=== PATIENT | female | born 1985 | race Caucasian/White ===

== ENCOUNTER 2016-07-25 07:06 | Emergency (ER) | payer MEDICAID ==
[~2016-07-25] VITALS: Ht 170.2 cm; Wt 82.0 kg
[2016-07-25 07:08] VITALS: BP 114/71; PULSE 84; RESP 16; TEMP 99.1; O2SAT 96
--- NOTE | 2016-07-25 07:34 | PD ---
HPI Chief Complaint: ENT Complaint Time Seen by Provider: 07:26 Travel History International Travel<30 days: No Contact w/Intl Traveler<30days: No Traveled to known affect area: No History of Present Illness HPI 30-year-old female presents to the emergency Department with right- sided throat pain and fever for the past several days. Patient states she has pain into the right ear and worsening right throat pain with difficulty swallowing secondary to pain. Patient also feels hoarse. Patient denies headache, nausea, vomiting, but has had increased reflux in the past several weeks. She denies cough or shortness of breath. She denies diarrhea. Patient has a history of MRSA but no known drug allergies. PFSH Past Medical History Asthma: Yes Diminished Hearing: No Respiratory: Yes (ASTHMA) Immunizations Current: Yes ?: Not LMP: 07/17/16 : 4 Para: 2 Miscarriage: 2 Social History Alcohol Use: Yes (Occ.) Tobacco Use: Yes (1/2PPD) Substance Use: No Allergies-Medications (Allergen,Severity, Reaction): Coded Allergies: *MDRO Multi-Drug Resistant Organism (Verified Adverse Reaction, Unknown, ) MRSA leg wound 03/2015 Reported Meds & Prescriptions Reported Meds & Active Scripts Active Omeprazole 40 Mg Cap 40 Mg PO DAILY Magic Mouthwash Adult Liq (Multi-Ingredient Mouthwash/Gargle) 120 Ml Susp 5 Ml SWISH-SWAL ACHS Each 5 mL contains: Nystatin 200,000 units, Diphenhydramine 4.25 mg, Viscous Lidocaine 10 mg, Chin syrup 0.8 mL Augmentin (Amoxicillin-Clavulanate) 875-125 mg Tab 875 Mg PO BID not for use in CrCl <30 ml/min. Review of Systems Except as stated in HPI: all other systems reviewed are Neg General / Constitutional: Positive: Fever, Chills Eyes: No: Visual changes HENT: Positive: Sore Throat, Rhinitis, Rhinorrhea, Congestion, Earache, No: Headaches, Vertigo, Lightheadedness, Nosebleed, Neck Stiffness, Neck Pain, Gingival Bleeding, Dental Difficulties, Ear Discharge Cardiovascular: No: Chest Pain or Discomfort Respiratory: No: Cough, Shortness of Breath, Wheezing Gastrointestinal: Positive: Other (increased heartburn in the past several weeks.), No: Nausea, Vomiting, Diarrhea, Abdominal Pain Genitourinary: No: Dysuria Musculoskeletal: No: Pain Skin: No Rash Neurologic: No: Weakness Psychiatric: No: Depression Endocrine: No: Polydipsia Hematologic/Lymphatic: No: Easy Bruising Physical Exam Narrative GENERAL: Patient appears in no acute distress although mildly ill. SKIN: Warm and dry. Normal color. Normal turgor. HEAD: Atraumatic. Normocephalic. EYES: Pupils equal and round. No scleral icterus. No injection or drainage. ENT: No nasal bleeding or discharge. Mucous membranes pink and moist. Patient has inflamed swollen tender right sided tonsillitis with mild to moderate injection as well on the left without swelling. There is mild greenish exudate noted. Uvula is midline. Pharynx is otherwise clear. Airway is patent. TMs are somewhat dull bilaterally with no injection. No sinus tenderness. NECK: Trachea midline. No JVD. Supple. Patient has tender right anterior cervical lymphadenopathy. CARDIOVASCULAR: Regular rate and rhythm. RESPIRATORY: No accessory muscle use. Clear to auscultation. Breath sounds equal bilaterally. GASTROINTESTINAL: Abdomen soft, non-tender, nondistended. Hepatic and splenic margins not palpable. MUSCULOSKELETAL: Extremities without clubbing, cyanosis, or edema. No obvious deformities. NEUROLOGICAL: Awake and alert. No obvious cranial nerve deficits. Motor grossly within normal limits. Five out of 5 muscle strength in the arms and legs. Normal speech. PSYCHIATRIC: Appropriate mood and affect; insight and judgment normal. Data Data Last Documented VS Vital Signs Date Time Temp Pulse Resp B/P Pulse Ox O2 Delivery O2 Flow Rate FiO2 07/25/16 07:08 99.1 84 16 114/71 96 MDM Medical Decision Making Medical Screen Exam Complete: Yes Emergency Medical Condition: Yes Differential Diagnosis Viral pharyngitis. Tonsillitis. Strep throat. Peritonsillar abscess. Narrative Course Patient is stable at time of medical exam. Patient will be treated with Augmentin 875 twice a day 10 days. Patient is given Magic mouthwash 5-10 mL's every 2 hours when necessary throat pain 120 mL's. 2 refills. Patient is given omeprazole 40 mg daily #30 with 2 refills. Is to use ice chips and salt water gargles frequently. Patient is Tylenol and ibuprofen as needed. Patient follow with primary care physician or return to emergency Department with worsening symptoms as discussed. Diagnosis Primary Impression: Peritonsillar abscess Patient Instructions: General Instructions, Peritonsillar Abscess (ED) Departure Forms: Work Release Enter return to work date: Jul 27, 2016 Additional Instructions: Patient will be treated with Augmentin 875 twice a day 10 days. Patient is given Magic mouthwash 5-10 mL's every 2 hours when necessary throat pain 120 mL's. 2 refills. Patient is given omeprazole 40 mg daily #30 with 2 refills. Is to use ice chips and salt water gargles frequently. Patient is Tylenol and ibuprofen as needed. Patient follow with primary care physician or return to emergency Department with worsening symptoms as discussed. Med/Other Pt SpecificInfo: Prescription(s) given Scripts Omeprazole 40 Mg Cap40 Mg PO DAILY #30 CAP Ref 2 Prov:Rick Lanza MD 07/25/16 Pyumhpjo-Skheihhhghvujcp-Hvznaraxo Liq (Magic Mouthwash Adult Liq)120 Ml Susp5 Ml SWISH-SWAL ACHS #120 ML Ref 2 Each 5 mL contains: Nystatin 200,000 units, Diphenhydramine 4.25 mg, Viscous Lidocaine 10 mg, Chin syrup 0.8 mL Prov:Rick Lanza MD 07/25/16 Amoxicillin-Clavulanate (Augmentin)875-125 mg [id number] Mg PO BID #20 TAB not for use in CrCl <30 ml/min. Prov:Rick Lanza MD 07/25/16 Disposition: 01 DISCHARGE HOME Condition: Stable Lloyd Calhoun Jul 25, 2016 07:34
[2016-07-25] MEDS ORDERED: OMEP40CA2 PO (07:35)
[2016-07-25] MEDS ORDERED: MAGICADU2 SWISH-SWAL (07:35)
[2016-07-25] MEDS ORDERED: AUGM875T PO (07:35)
== END 2016-07-25 07:44 | disposition home or self-care (01) ==
LOC: NEPB 07:06
DX: J36 Peritonsillar abscess (principal); F17.210 Nicotine dependence, cigarettes, uncomplicated
CPT/HCPCS: 99283

== ENCOUNTER 2016-12-02 18:00 | Emergency (ER) | payer MEDICAID ==
[~2016-12-02] VITALS: Ht 170.2 cm; Wt 75.0 kg
[~2016-12-02 18:00] MED LIST: AUGM875T PO; MAGICADU2 SWISH-SWAL; OMEP40CA2 PO
[2016-12-02 18:10] VITALS: BP 116/82; PULSE 81; RESP 16; TEMP 98.9; O2SAT 98
[2016-12-02] MEDS: KETOROLAC TROMETHAMINE 60 MG/2 ML (IM) VIAL IM ONE ×2 (19:30→19:58)
--- NOTE | 2016-12-02 19:36 | PD ---
HPI Chief Complaint: Injury Time Seen by Provider: 19:23 Travel History International Travel<30 days: No Contact w/Intl Traveler<30days: No Traveled to known affect area: No History of Present Illness HPI Patient is a 31-year-old female presenting to emergency for evaluation of right hand pain. Patient states she fell on the lateral aspect of her right hand last night. She reports pain a 7 out of 10 and bruising. Patient feels as if she fractured her hand. She denies any numbness or weakness but states it's painful when she tries to dentist attendant. She denies any other injury or trauma. She denies a significant past medical history. Patient took ibuprofen approximately 4 hours prior to arrival with no significant relief of symptoms. PFSH Past Medical History Asthma: Yes Diminished Hearing: No Immunizations Current: Yes ?: Not : 4 Para: 2 Miscarriage: 2 Social History Alcohol Use: Yes (Occ.) Tobacco Use: Yes (1/2PPD) Substance Use: No Allergies-Medications (Allergen,Severity, Reaction): Coded Allergies: *MDRO Multi-Drug Resistant Organism (Verified Adverse Reaction, Unknown, ) MRSA leg wound 03/2015 Reported Meds & Prescriptions Reported Meds & Active Scripts Active No Active Prescriptions or Reported Medications Review of Systems Except as stated in HPI: all other systems reviewed are Neg Musculoskeletal: Positive: Myalgias, Arthralgias, Edema, Pain Skin: Positive Change in Pigmentation Physical Exam Narrative GENERAL: Well-nourished, well-developed patient. SKIN: Focused skin assessment warm/dry. HEAD: Normocephalic. EYES: No scleral icterus. No injection or drainage. NECK: Supple, trachea midline. No JVD or lymphadenopathy. CARDIOVASCULAR: Regular rate and rhythm without murmurs, gallops, or rubs. RESPIRATORY: Breath sounds equal bilaterally. No accessory muscle use. GASTROINTESTINAL: Abdomen soft, non-tender, nondistended. MUSCULOSKELETAL: No cyanosis, mild edema and ecchymosis noted over the lateral aspect of the right hand as well as the fourth and fifth metacarpals. Positive radial pulse, brisk less than 2 second capillary refill. Decreased range of motion with flexion and extension of right fourth and fifth fingers. BACK: Nontender without obvious deformity. No CVA tenderness. Data Data Last Documented VS Vital Signs Date Time Temp Pulse Resp B/P Pulse Ox O2 Delivery O2 Flow Rate FiO2 12/02/16 18:10 98.9 81 16 116/82 98 Orders Hand, Complete ([id number]) (12/02/16 ) Ketorolac Inj (Toradol Inj) (12/02/16 19:30) Ice / Cold Pack PRN (12/02/16 19:30) Wrist, Complete ([id number]) (12/02/16 ) [facility] Medical Decision Making Medical Screen Exam Complete: Yes Emergency Medical Condition: Yes Interpretation(s) Vital Signs Date Time Temp Pulse Resp B/P Pulse Ox O2 Delivery O2 Flow Rate FiO2 12/02/16 18:10 98.9 81 16 116/82 98 Differential Diagnosis Contusion versus fracture versus sprain versus strain versus other Narrative Course Patient's 31-year-old female presenting with 1 day of right hand pain secondary to a mechanical fall. She is neurovascularly intact, imaging ordered and pending. Patient was given ice pack for comfort and Toradol as ordered for pain. Imaging of the right hand and wrist shows no acute fracture or abnormality. Patient is encouraged to rest, ice, elevate extremity. She is encouraged to continue range of motion exercises. She is encouraged to follow-up with primary care provider return to emergency department for any new or worsening symptoms. Patient verbalized understanding of these instructions. Patient stable for discharge. Diagnosis Primary Impression: Contusion, hand Qualified Code: S60.221A - Contusion of right hand, initial encounter Additional Impression: Sprain, hand Qualified Code: S63.91XA - Sprain, hand, right, initial encounter Referrals: [facility] Primary Care Physician Patient Instructions: Contusion in Adults (DC), General Instructions, Hand Sprain (ED) Additional Instructions: Follow-up with her primary doctor or at the [facility] Take medications as directed, continue range of motion exercises, rest, ice, elevate extremity Return to emergency department for any new or worsening symptoms Med/Other Pt SpecificInfo: Prescription(s) given Scripts Ibuprofen 800 Mg [id number] Mg PO Q6HR PRN (PAIN) #40 TAB Ref 0 Prov:Jessica Tomas 12/02/16 Disposition: 01 DISCHARGE HOME Condition: Stable Jessica Tomas Dec 02, 2016 19:36
--- NOTE | 2016-12-02 20:06 | RADRPT ---
EXAM DATE/TIME: 12/02/2016 19:41 [facility] COMPARISON: HAND RIGHT COMPLETE ([id number]), January 18, 2016, 20:35. INDICATIONS : Right hand pain from fall yesterday. MEDICAL HISTORY : None. SURGICAL HISTORY : None. ENCOUNTER: Initial ACUITY: 1 day PAIN SCORE: 9/10 LOCATION: Right medial hand FINDINGS: Three views the right hand demonstrate no fracture or dislocation. Mineralization is within normal li mits and there is no significant arthropathy. No soft tissue abnormality or radiopaque foreign body i s identified. CONCLUSION: No acute cardiopulmonary abnormality is identified. Young Leyva MD on December 02, 2016 at 20:01 Board Certified Radiologist. This report was verified electronically.
--- NOTE | 2016-12-02 20:07 | RADRPT ---
EXAM DATE/TIME: 12/02/2016 19:45 [facility] COMPARISON: No previous studies available for comparison. INDICATIONS : Right wrist pain from fall yesterday. MEDICAL HISTORY : None. SURGICAL HISTORY : None. ENCOUNTER: Initial ACUITY: 1 day PAIN SCORE: 10 LOCATION: Right wrist FINDINGS: Three views of the right wrist demonstrate no fracture or dislocation. Mineralization is within wandy l limits. There is no significant arthropathy. No soft tissue abnormality or radiopaque foreign body is identified. CONCLUSION: No acute abnormality. Young Leyva MD on December 02, 2016 at 20:04 Board Certified Radiologist. This report was verified electronically.
[2016-12-02] MEDS ORDERED: IBUP800T23 PO (20:14)
== END 2016-12-02 20:32 | disposition home or self-care (01) ==
LOC: NEPK 18:00
DX: S60.221A Contusion of right hand, initial encounter (principal); F17.210 Nicotine dependence, cigarettes, uncomplicated; W18.30XA Fall on same level, unspecified, initial encounter; Y93.9 Activity, unspecified; Y92.9 Unspecified place or not applicable; Y99.9 Unspecified external cause status
CPT/HCPCS: 73110; 73130; 99283; J1885

== ENCOUNTER 2017-07-03 11:45 | Emergency (ER) | payer MEDICAID ==
[~2017-07-03] VITALS: Ht 170.2 cm; Wt 77.0 kg
[~2017-07-03 11:45] MED LIST changes: -AUGM875T PO; +IBUP1TAB7 PO; -MAGICADU2 SWISH-SWAL; -OMEP40CA2 PO
[2017-07-03 11:47] VITALS: BP 143/86; PULSE 81; RESP 18; TEMP 98; O2SAT 100
[2017-07-03 12:22] LABS: AUTOMATED NEUTROPHIL # 4.1 TH/MM3 (1.8-7.7); BASOPHIL % 0.5 % (0.0-2.0); EOSINOPHIL # 0.1 TH/MM3 (0-0.4); EOSINOPHIL % 1.7 % (0.0-4.0); HEMATOCRIT 42.8 % (35.0-46.0); HEMOGLOBIN 14.4 GM/DL (11.6-15.3); LYMPHOCYTE # 2.4 TH/MM3 (1.0-4.8); MEAN CELL VOLUME 96.4 FL (80.0-100.0); MEAN CORPUSCULAR HEMOGLOBIN 32.5 PG (27.0-34.0); MEAN CORPUSCULAR HGB CONC 33.7 % (32.0-36.0); MEAN PLATELET VOLUME 9.8 FL (7.0-11.0); MONOCYTE # 0.6 TH/MM3 (0-0.9); NEUT % 56.8 % (16.0-70.0); PLATELET COUNT 173 TH/MM3 (150-450); RED BLOOD COUNT 4.44 MIL/MM3 (4.00-5.30); RED CELL DISTRIBUTION WIDTH 13.3 % (11.6-17.2); WHITE BLOOD COUNT 7.3 TH/MM3 (4.0-11.0)
[2017-07-03 12:31] LABS: BACTERIA, URINE RARE /hpf; BILIRUBIN, URINE NEG (NEG); BLOOD, URINE NEG (NEG); GLUCOSE,URINE NEG (NEG); KETONE, URINE NEG (NEG); MUCUS URINE FEW /lpf (OCC); NITRITE,URINE NEG (NEG); PH, URINE 5.5 (5.0-8.5); SQUAMOUS EPITHELIAL CELL URINE 24 /hpf (0-5); URINE COLOR YELLOW (YELLW/STRAW); URINE LEUKOCYTE ESTERASE LARGE (NEG)
--- NOTE | 2017-07-03 12:47 | PD ---
HPI Chief Complaint: Offset Plate Maker Problem/Complaint Time Seen by Provider: 12:35 Travel History International Travel<30 days: No Contact w/Intl Traveler<30days: No Traveled to known affect area: No History of Present Illness HPI 31-year-old female presents the emergency department with 2 faintly positive urine test. She states she 6 days late for her period. Patient states lower abdominal discomfort and cramping. Patient denies fever, chills, or flank pain. Patient very concerned about possible . Pain is currently 6 out of 10. She denies urinary dysuria or vaginal discharge. She denies vaginal bleeding. Labs ordered in triage include CBC, CMP, type and screen, serum hCG, and urinalysis. Patient's history of MRSA has no known drug allergies. PFSH Past Medical History Medical History: Denies Significant Hx Asthma: Yes Diminished Hearing: No Respiratory: Yes (ASTHMA) Immunizations Current: Yes Tetanus Vaccination: < 5 Years Influenza Vaccination: No ?: Unknown LMP: 06/02/2017 : 4 Para: 2 Miscarriage: 2 Past Surgical History Surgical History: No Previous Surgery Social History Alcohol Use: Yes (Occ.) Tobacco Use: Yes (1/2PPD) Substance Use: No Allergies-Medications (Allergen,Severity, Reaction): Coded Allergies: *MDRO Multi-Drug Resistant Organism (Verified Adverse Reaction, Unknown, ) MRSA leg wound 03/2015 Reported Meds & Prescriptions Reported Meds & Active Scripts Active Ibuprofen 800 Mg Tab 800 Mg PO Q6HR PRN Review of Systems Except as stated in HPI: all other systems reviewed are Neg General / Constitutional: No: Fever, Chills Eyes: No: Visual changes HENT: No: Headaches Cardiovascular: No: Chest Pain or Discomfort Respiratory: No: Shortness of Breath Gastrointestinal: No: Abdominal Pain Genitourinary: Positive: Pelvic Pain, No: Urgency, Frequency, Dysuria, Hesitancy, Dribbling, Incontinence, Flank Pain, Discharge, Vaginal Bleeding Musculoskeletal: No: Pain Skin: No Rash Neurologic: No: Weakness Psychiatric: No: Depression Endocrine: No: Polydipsia Hematologic/Lymphatic: No: Easy Bruising Physical Exam Narrative GENERAL: Patient appears very anxious but otherwise in no acute distress. SKIN: Warm and dry. Normal color. Normal turgor. No rash. HEAD: Atraumatic. Normocephalic. EYES: Pupils equal and round. No scleral icterus. No injection or drainage. ENT: No nasal bleeding or discharge. Mucous membranes pink and moist. NECK: Trachea midline. Supple and nontender CARDIOVASCULAR: Regular rate and rhythm. RESPIRATORY: No accessory muscle use. Clear to auscultation. Breath sounds equal bilaterally. GASTROINTESTINAL: Abdomen soft, moderate diffuse suprapubic tenderness, nondistended. No point tenderness or rebound. No CVA tenderness. Hepatic and splenic margins not palpable. MUSCULOSKELETAL: Extremities without clubbing, cyanosis, or edema. No obvious deformities. NEUROLOGICAL: Awake and alert. No obvious cranial nerve deficits. Motor grossly within normal limits. Five out of 5 muscle strength in the arms and legs. Normal speech. PSYCHIATRIC: Appropriate mood and affect; insight and judgment normal. Data Data Last Documented VS Vital Signs Date Time Temp Pulse Resp B/P (MAP) Pulse Ox O2 Delivery O2 Flow Rate FiO2 07/03/17 11:47 98.0 81 18 143/86 (105) 100 Room Air Orders Orders Beta Hcg (Quant/Titer) (07/03/17 11:50) Complete Blood Count With Diff (07/03/17 11:50) Basic Metabolic Panel (Bmp) (07/03/17 11:50) Complete Rh (07/03/17 11:50) Urinalysis - C+S If Indicated (07/03/17 11:50) Ed Urine Pregnancytest Poc (07/03/17 11:50) Urine Culture (07/03/17 11:55) Ceftriaxone Inj (Rocephin Inj) (07/03/17 12:45) Us Pelvis (Ques Pr/Ect)W Trans (07/03/17 13:14) Labs Laboratory Tests Test 07/03/17 11:55 07/03/17 12:05 Urine Color YELLOW Urine Turbidity HAZY Urine pH 5.5 Urine Specific [place] 1.022 Urine Protein TRACE mg/dL Urine Glucose (UA) NEG mg/dL Urine Ketones NEG mg/dL Urine Occult Blood NEG Urine Nitrite NEG Urine Bilirubin NEG Urine Urobilinogen LESS THAN 2.0 MG/DL Urine Leukocyte Esterase LARGE Urine RBC 6 /hpf Urine WBC 14 /hpf Urine Squamous Epithelial Cells 24 /hpf Urine Bacteria RARE /hpf Urine Mucus FEW /lpf Microscopic Urinalysis Comment CULTURE INDICATED White Blood Count 7.3 TH/MM3 Red Blood Count 4.44 MIL/MM3 Hemoglobin 14.4 GM/DL Hematocrit 42.8 % Mean Corpuscular Volume 96.4 FL Mean Corpuscular Hemoglobin 32.5 PG Mean Corpuscular Hemoglobin Concent 33.7 % Red Cell Distribution Width 13.3 % Platelet Count 173 TH/MM3 Mean Platelet Volume 9.8 FL Neutrophils (%) (Auto) 56.8 % Lymphocytes (%) (Auto) 33.0 % Monocytes (%) (Auto) 8.0 % Eosinophils (%) (Auto) 1.7 % Basophils (%) (Auto) 0.5 % Neutrophils # (Auto) 4.1 TH/MM3 Lymphocytes # (Auto) 2.4 TH/MM3 Monocytes # (Auto) 0.6 TH/MM3 Eosinophils # (Auto) 0.1 TH/MM3 Basophils # (Auto) 0.0 TH/MM3 CBC Comment DIFF FINAL Differential Comment Blood Urea Nitrogen 10 MG/DL Creatinine 0.81 MG/DL Random Glucose 100 MG/DL Calcium Level 8.6 MG/DL Sodium Level 139 MEQ/L Potassium Level 3.4 MEQ/L Chloride Level 106 MEQ/L Carbon Dioxide Level 24.6 MEQ/L Anion Gap 8 MEQ/L Estimat Glomerular Filtration Rate 82 ML/MIN Human Chorionic Gonadotropin, Quant 34 MIU/ML MDM Medical Decision Making Medical Screen Exam Complete: Yes Emergency Medical Condition: Yes Differential Diagnosis Urinary tract infection. Early . Ectopic. Molar . Narrative Course Patient is medically stable at time of exam. Labs show normal CBC, chemistries unremarkable except slightly low potassium of 3.4. Type and screen shows her to be A pos. Serum hCG is slightly positive at 34. Urinalysis very suggestive of urinary tract infection with large leukocyte esterase, with 6 RBCs per high-power field, 14 wbc's per high-power field, and a few bacteria. Urine culture planted. Patient is given 1000 mg Rocephin IM. Patient discussed with Dr. Sanchez who recommends pelvic ultrasound. Ultrasound shows: 1. of unknown location. There is thickening of the endometrium but no gestational sac is identified. Suggest followup imaging and followup beta-hCG as clinically indicated. 2. Ovaries demonstrate no concerning abnormality. 3. Possible 12 mm a intramural leiomyoma in the left mid uterus. Patient will be sent home on Keflex 500 mg 3 times a day 7 days. She is to have repeat hCG in 2 days. Recommend follow-up with yarn dumper as discussed. Patient can return to emergency Department with worsening pain as needed. Diagnosis Primary Impression: UTI (urinary tract infection) Qualified Codes: N30.00 - Acute cystitis without hematuria Additional Impression: Elevated serum hCG Referrals: Pilot Control Operator Helper call for appointment Patient Instructions: Abdominal Pain in (ED), Dysuria (ED), General Instructions Additional Instructions: Labs show normal CBC, chemistries unremarkable except slightly low potassium of 3.4. Type and screen shows her to be A pos. Serum hCG is slightly positive at 34. Urinalysis very suggestive of urinary tract infection with large leukocyte esterase, with 6 RBCs per high-power field, 14 wbc's per high-power field, and a few bacteria. Urine culture planted. Patient is given 1000 mg Rocephin IM. Patient discussed with Dr. Sanchez who recommends pelvic ultrasound. Ultrasound shows: 1. of unknown location. There is thickening of the endometrium but no gestational sac is identified. Suggest followup imaging and followup beta-hCG as clinically indicated. 2. Ovaries demonstrate no concerning abnormality. 3. Possible 12 mm a intramural leiomyoma in the left mid uterus. Patient will be sent home on Keflex 500 mg 3 times a day 7 days. She is to have repeat hCG in 2 days. Recommend follow-up with yarn dumper as discussed. Patient can return to emergency Department with worsening pain as needed. Med/Other Pt SpecificInfo: Prescription(s) given Disposition: 01 DISCHARGE HOME Condition: Stable Lloyd Calhoun Jul 03, 2017 12:47
[2017-07-03 12:48] LABS: BICARBONATE 24.6 MEQ/L (21.0-32.0); CALCIUM 8.6 MG/DL (8.5-10.1); CREATININE 0.81 MG/DL (0.50-1.00)
--- NOTE | 2017-07-03 14:36 | RADRPT ---
EXAM DATE/TIME: 07/03/2017 13:54 [facility] COMPARISON: No previous studies available for comparison. INDICATIONS : Pelvic pains. LAB(S): Beta-hC MEDICAL HISTORY : . Asthma. SURGICAL HISTORY : None. ENCOUNTER: Initial ACUITY: 4-6 days PAIN SCORE: 4/10 LOCATION: Bilateral pelvis MEASUREMENTS: UTERUS: 10.3 x 5.6 x 5.5 cm ENDOMETRIAL STRIPE: >20 mm RIGHT OVARY: 3.0 x 1.8 x 1.2 cm LEFT OVARY: 3.6 x 3.1 x 2.7 cm FREE FLUID: No CROWN RUMP LENGTH: Not visualized FINDINGS: UTERUS: There is a small hypoechoic area in the left mid uterine body measuring 12 mm. This may represent a l eiomyoma. Endometrium is homogeneously thickened. No gestational sac is visualized. RIGHT OVARY: Ovary contains no mass or significant cystic lesion. Possible corpus luteal cyst in the right ovary. LEFT OVARY: Ovary contains no mass or significant cystic lesion. MISCELLANEOUS: No free fluid. CONCLUSION: 1. of unknown location. There is thickening of the endometrium but no gestational sac is id entified. Suggest followup imaging and followup beta-hCG as clinically indicated. 2. Ovaries demonstrate no concerning abnormality. 3. Possible 12 mm a intramural leiomyoma in the left mid uterus. Young Leyva MD on July 03, 2017 at 14:31 Board Certified Radiologist. This report was verified electronically.
[2017-07-03] MEDS ORDERED: CEPH-460 PO (14:53)
[2017-07-03] MEDS ORDERED: CIPR-9 PO (15:23)
[2017-07-03] MEDS ORDERED: TRAM50TA PO (15:23)
[2017-07-03] MEDS ORDERED: METR1TAB76 PO (15:23)
[2017-07-03] MEDS ORDERED: POTA1TAB4 PO (15:23)
[2017-07-11] MEDS ORDERED: PREN1CAP PO (11:04)
[2017-07-11] MEDS ORDERED: TERC.4%V VAGINAL (11:05)
== END 2017-07-03 15:30 | disposition home or self-care (01) ==
LOC: NEPD 11:45
DX: N39.0 Urinary tract infection, site not specified (principal); R93.8 Abnormal findings on diagnostic imaging of other specified body structures; B96.89 Other specified bacterial agents as the cause of diseases classified elsewhere; J45.909 Unspecified asthma, uncomplicated; F17.210 Nicotine dependence, cigarettes, uncomplicated
CPT/HCPCS: 76700; 76817; 80048; 81001; 84702; 84703; 85025; 86901; 87086; 96372; 99285; J0696

== ENCOUNTER 2017-07-16 22:42 | Emergency (ER) | payer OTHER, MEDICAID ==
[~2017-07-16] VITALS: Ht 170.2 cm; Wt 82.0 kg
[~2017-07-16 22:42] MED LIST changes: +PREN1CAP PO; +TERC.4%V VAGINAL
[2017-07-16 22:45] VITALS: BP 112/74; PULSE 86; RESP 16; TEMP 98.7; O2SAT 99
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
[2017-07-16] MEDS ORDERED: ACETAMINOPHEN 325 MG TAB PO ONE (23:15)
[2017-07-16 23:35] LABS: BACTERIA, URINE RARE /hpf; BILIRUBIN, URINE NEG (NEG); BLOOD, URINE NEG (NEG); GLUCOSE,URINE NEG (NEG); KETONE, URINE NEG (NEG); MUCUS URINE FEW /lpf (OCC); NITRITE,URINE NEG (NEG); PH, URINE 5.5 (5.0-8.5); SQUAMOUS EPITHELIAL CELL URINE 6 /hpf (0-5); URINE COLOR YELLOW (YELLW/STRAW); URINE LEUKOCYTE ESTERASE SMALL (NEG)
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
== END 2017-07-17 00:15 | disposition home or self-care (01) ==
LOC: NEPD 22:42
DX: O9A.211 Injury, poisoning and certain other consequences of external causes complicating pregnancy, first trimester (principal); S39.012A Strain of muscle, fascia and tendon of lower back, initial encounter; V89.2XXA Person injured in unspecified motor-vehicle accident, traffic, initial encounter; O99.511 Diseases of the respiratory system complicating pregnancy, first trimester; J45.909 Unspecified asthma, uncomplicated; O99.331 Smoking (tobacco) complicating pregnancy, first trimester; F17.200 Nicotine dependence, unspecified, uncomplicated; Z3A.01 Less than 8 weeks gestation of pregnancy
CPT/HCPCS: 81001; 99283

== ENCOUNTER 2017-09-22 17:37 | Emergency (ER) | payer MEDICAID ==
[2017-09-22 18:18] LABS: AMORPHOUS SEDIMENT, URINE RARE; BILIRUBIN, URINE NEG (NEG); BLOOD, URINE NEG (NEG); GLUCOSE,URINE NEG (NEG); KETONE, URINE NEG (NEG); MUCUS URINE FEW /lpf (OCC); NITRITE,URINE NEG (NEG); SQUAMOUS EPITHELIAL CELL URINE 5 /hpf (0-5); URINE COLOR LIGHT-YELLOW (YELLW/STRAW); URINE LEUKOCYTE ESTERASE TRACE (NEG)
--- NOTE | 2017-09-22 18:25 | PD ---
HPI Chief Complaint Pelvic pressure, flank pain Date Seen: Sep 22, 2017 Time Seen: 18:05 Travel History International Travel<30 Days: No Contact w/Intl Traveler<30Days: No History of Present Illness HPI 31 year old at 16 weeks gestation, patient at [facility], presents for pelvic pressure and flank pain that started early this morning. The pelvic pressure is constant in nature, rated 6/10. The pain radiates down into the vagina and also to the flanks bilaterally. She has not noticed dysuria or more frequent urination than usual. She has also not noticed any blood in the urine. She describes the pain as "swirly and tingling". She does note that 2 weeks ago she was diagnosed with asymptomatic UTI and treated with an antibiotic. She does not remember which antibiotic. She has not noticed any vaginal bleeding or discharge or leakage of fluid. She has no headaches, blurry vision, chest pain, shortness of breath, abdominal pain, nausea, vomiting, diarrhea, edema. History Past Medical History Narrative Medical Asthma, well controlled, has albuterol inhaler GERD, treated with ranitidine Smoker Obstetric History Obstetric History at 16 weeks Goes to [facility] No complications in reported Getting routine care and taking vitamins History of two vaginal deliveries and one first trimester miscarriage Past Surgical History Narrative Surgical None Family History Narrative Family History None reported Social History Narrative Social History Smokes half to one pack per day No alcohol or drug use Allergies-Medications (Allergen,Severity, Reaction): Coded Allergies: No Known Allergies (Unverified , 07/16/17) Home Meds Active Scripts Vit W/ Fe Polysacch C (Vitafol Ultra 29-0.6-0.4-200 mg) 29 Mg Iron-1 Mg -200 Mg Cap, 1 TAB PO DAILY, #30 BOTTLE 11 Refills Prov:Ibis Finnegan 07/11/17 Discontinued Scripts Terconazole Vaginal Cream (Terazol 7 Vaginal Cream) 0.4 % Cream, 1 APPL VAGINAL HS for Fungal Infection, #45 GM 0 Refills 1 applicatorful intravaginally x 7 nights Prov:Ibis Finnegan 07/11/17 Ibuprofen (Ibuprofen) 800 Mg Tab, 800 MG PO Q6HR Y for PAIN, #40 TAB 0 Refills Prov:Jessica TomasP 12/02/16 Narrative Medication Albuterol as needed for asthma Ranitidine as needed for GERD vitamins Review of Systems Except as stated in HPI: all other systems reviewed are Neg Physical Exam Narrative GENERAL: Well-nourished, well-developed patient. SKIN: Warm and dry. HEAD: Normocephalic and atraumatic. EYES: No scleral icterus. No injection or drainage. ENT: No nasal drainage noted. Mucous membranes pink. Airway patent. NECK: Supple, trachea midline. No JVD. CARDIOVASCULAR: Regular rate and rhythm without murmurs, gallops, or rubs. RESPIRATORY: Breath sounds equal bilaterally. No accessory muscle use. ABDOMEN/GI: Abdomen soft, non-tender, bowel sounds present, no rebound, no guarding Gravid to 16 weeks size GENITOURINARY: External Genitalia: intact and normal in appearance Dilatation: closed, thick Doppler: FHT 140's EXTREMITIES: No cyanosis or edema. BACK: Nontender without obvious deformity. No CVA tenderness. NEUROLOGICAL: Awake and alert. Motor and sensory grossly within normal limits. Data Data Vital Signs Reviewed: Yes Orders Orders Urinalysis - C+S If Indicated (09/22/17 18:04) [facility] Medical Record Reviewed: Yes Interpretation(s) 31 year old at 16 weeks gestation presenting with pelvic pressure and flank pain. Likely round ligament pain versus Suraj-Ahn versus bladder spasms. - UA showing trace leukocyte esterase, otherwise normal. No culture indicated per lab. - Cervical exam showing closed and thick cervix - Recommend staying well hydrated Plan 31 year old at 16 weeks gestation with pelvic pressure, likely round ligament pain versus Colbert Ahn contractions. - Continue anticipatory guidance and care. If pain worsens, fevers develop, leakage of fluid occurs, vaginal bleeding occurs. - Continue routine care at [facility]. - Continue vitamins. - Would benefit from smoking cessation counseling. Diagnosis Diagnosis: Primary Impression: Round ligament pain Disposition: 01 DISCHARGE HOME Condition: Good Jamil Rolle MD R3 Sep 22, 2017 18:25
== END 2017-09-22 18:38 | disposition home or self-care (01) ==
LOC: HOBED 17:37
DX: O26.892 Other specified pregnancy related conditions, second trimester (principal); R10.2 Pelvic and perineal pain; Z3A.16 16 weeks gestation of pregnancy
CPT/HCPCS: 81001; 99283

== ENCOUNTER 2018-03-02 07:12 | Inpatient (IN) ==
[2018-03-02] MEDS ORDERED: Sod Chloride 0.9% Inj 1,000 ML IV.CONT PRN (07:29)
[2018-03-02] MEDS ORDERED: Oxytocin 30 Units/500ml Premix 30 UNITS/500 ML BAG IV.SIG ONE (07:29)
[2018-03-02] MEDS ORDERED: Sodium Chlor 0.9% Inj 500 ML IV.SIG PRN (07:29)
[2018-03-02] MEDS ORDERED: fentaNYL Citrate Inj 100 MCG/2 ML Ampul IV.PUSH PRN ×2 (07:29)
[2018-03-02] MEDS ORDERED: Naloxone Inj 0.4 MG/ML Vial IV.PUSH PRN (07:29)
[2018-03-02] MEDS ORDERED: Citric Acid/Sodium Citrate Liq 30 ML UDC PO SCH (07:30)
--- NOTE | 2018-03-02 07:36 | P.HPOB ---
History of Present Illness Primary Care Physician: No Primary Care Physician Dr. Gumaro Harris Chief Complaint: Contractions History of Present Illness: Patient is 32-year-old white female A1 at 39 weeks goes to the [facility] and presents for evaluation of contractions and labor. Patient plans to been lizbet since I saw her yesterday at 1:00 in the afternoon and now the contractions are much stronger and much more regular. At that first check she was 1 cm and this morning she is 3-4 cm dilated. There is no bleeding or leakage of fluid, NST is reactive, she is lizbet every 3 minutes. Weeks Gestation:: 39 Para: 2 : 4 Total # of Miscarriage(s): 1 Review of Systems Constitutional: Denies anorexia, Denies body ache(s), Denies chills, Denies daytime sleepiness, Denies excessive sweating, Denies fatigue, Denies fever(s), Denies headache(s), Denies increased appetite, Denies lack of energy, Denies malaise, Denies night sweats, Denies weakness, Denies weight gain, Denies weight loss, Denies other Cardiovascular: Denies bluish discoloration of hand/feet, Denies chest pain, Denies chest pain at rest, Denies chest pain with activity, Denies excessive sweating, Denies fainting, Denies fast heart rate, Denies foot swelling, Denies generalized swelling, Denies irregular heart rhythm, Denies leg pain with activity, Denies leg sores, Denies leg swelling, Denies lightheadedness, Denies radiating jaw, neck or arm pain, Denies rapid, pounding, or irregular heartbeat , Denies shortness of breath, Denies shortness of breath with activity, Denies shortness of breath when lying down, Denies shortness of breath causing sudden awakening, Denies slow heart rate, Denies other Respiratory: Denies change in phlegm color, Denies chest congestion, Denies cough, Denies coughing up blood, Denies excessive phlegm production, Denies pain on inspiration, Denies pain with cough, Denies shortness of breath, Denies shortness of breath with activity, Denies snoring, Denies stridor, Denies wheezing, Denies other Gastrointestinal: Reports abdominal pain, Denies belching, Denies black, tarry stools, Denies bloating, Denies bright, red blood in stools, Denies change in bowel habits, Denies constant urge to pass stool, Denies change in stools, Denies coffee ground vomit, Denies constipation, Denies cramping, Denies difficulty swallowing, Denies excessive passing of gas, Denies feeling full early, Denies heartburn, Denies incontinent of stools, Denies loose stools, Denies nausea, Denies pain with swallowing, Denies vomiting, Denies vomiting blood, Denies other Genitourinary: Denies abnormal periods, Denies abnormal vaginal bleeding, Denies absent period, Denies bleeding between periods, Denies blood in urine, Denies difficulty starting urination, Denies difficulty urinating, Denies dribbling after urination, Denies frequent nighttime urination, Denies genital itching, Denies genital lesions, Denies heavy periods, Denies hot flashes, Denies light periods, Denies nipple discharge, Denies painful intercourse, Denies painful periods, Denies painful urination, Denies pelvic pain, Denies prolapse symptoms, Denies sexual problems, Denies side pain, Denies urinary incontinence, Denies urinary urgency, Denies vaginal discharge, Denies vaginal dryness, Denies vaginal odor, Denies vaginal itching, Denies other Musculoskeletal: Denies abnormal walking, Denies back pain, Denies body aches, Denies decreased muscle mass, Denies deformity, Denies joint pain, Denies joint swelling, Denies limited joint movement, Denies loss of height, Denies muscle cramps, Denies muscle weakness, Denies neck pain, Denies numbness, Denies radiating pain into limb, Denies stiffness, Denies tingling, Denies other Neurologic: Denies abnormal hearing, Denies abnormal movements, Denies abnormal speech, Denies abnormal walking, Denies behavioral changes, Denies burning sensations, Denies confusion, Denies dizziness, Denies fainting, Denies frequent falls, Denies headache(s), Denies lack of coordination, Denies localized weakness, Denies loss of vision, Denies memory loss, Denies numbness, Denies other visual disturbances, Denies radiating pain, Denies restless legs, Denies convulsions, Denies seizure-like activity, Denies sensory deficit, Denies tingling, Denies tingling/numbness/burning sensations, Denies tremor(s), Denies unsteadiness, Denies weakness, Denies other Hematologic/Lymphatic: Denies easy bleeding, Denies easy bruising, Denies enlarged lymph nodes, Denies other PMFSH - Tobacco History Smoking Status: Smoker, status unknown - Alcohol History How Often Do You Have a Drink Containing Alcohol: Never - Substance Use History Substance History: No History of Abuse - Travel History History of Recent Travel: No Recent Travel in the [place] Within the Last 8 Weeks: No Recent Travel Out of the Country Within the Last 8 Weeks: No Medications and Allergies Active Medications: Active Medications Citric Acid/Sodium Citrate (Sodium Citrate/Citric Acid Liq) 30 ml PO [employer] [facility] Stop: 03/06/18 07:29 Fentanyl Citrate (Fentanyl Inj) 50 mcg IV.PUSH Q1H PRN PRN Reason: Pain Scale 3 - 5 Fentanyl Citrate (Fentanyl Inj) 100 mcg IV.PUSH Q1H PRN PRN Reason: PAIN SCALE 6 TO 10 Lactated Ringer's (Lr 1000 Ml Inj) 1,000 mls @ 125 mls/hr IV.CONT .Q8H JAYMIE Lactated Ringer's (Lr 1000 Ml Inj) 1,000 mls @ 3,000 mls/hr IV.SIG UNSCH PRN PRN Reason: compromise or epidural Sodium Chloride (Ns Inj) 500 mls @ 1,000 mls/hr IV.SIG UNSCH PRN PRN Reason: SEE LABEL COMMENTS Sodium Chloride (Ns Inj) 1,000 mls @ 100 mls/hr IV.CONT .Q10H PRN PRN Reason: SEE LABEL COMMENTS Oxytocin (Pitocin 30 Units/Ns 500 Ml Premix) 30 units in 500 mls @ 999 mls/hr IV.SIG BOLUS ONE Stop: 03/02/18 07:59 Lidocaine HCl (Xylocaine 1% Inj) 0.1 ml I-DERMAL PRN PRN PRN Reason: For IV start Stop: 03/05/18 07:28 Lidocaine HCl (Xylocaine 1% Inj) 10 ml INFILTRATN PRN PRN PRN Reason: For episiotomy repair Stop: 03/04/18 07:28 Mineral Oil (Muri-Lube Oil) 10 ml TOPICAL PRN PRN PRN Reason: PRN perineal massage Naloxone HCl (Narcan Inj) 0.1 mg IV.PUSH Q2M PRN PRN Reason: for opiate reversal Ondansetron HCl (Zofran Inj) 4 mg IV.PUSH Q6H PRN PRN Reason: NAUSEA OR VOMITING Allergies Allergy/AdvReac Type Severity Reaction Status Date / Time No Known Allergies Allergy Verified 01/07/18 17:52 Home Medications Medication Instructions Recorded Confirmed Type PNV #[id number] 1 tab PO DAILY 01/07/18 03/01/18 History albuterol sulfate 2 puff INHALATION Q4-6H PRN 01/07/18 03/01/18 History ranitidine HCl [Heartburn Relief 150 mg PO BID 01/07/18 03/01/18 History (ranitidine)] Exam Vital signs: Vital Signs 03/02/18 07:15 Pulse Rate 82 Respiratory Rate 20 Blood Pressure 128/77 Narrative: GENERAL: Well-nourished, well-developed patient. SKIN: Warm and dry. HEAD: Normocephalic and atraumatic. EYES: No scleral icterus. No injection or drainage. ENT: No nasal drainage noted. Mucous membranes pink. Airway patent. NECK: Supple, trachea midline. No JVD. CARDIOVASCULAR: Regular rate and rhythm without murmurs, gallops, or rubs. RESPIRATORY: Breath sounds equal bilaterally. No accessory muscle use. BREASTS: Bilateral exam showed no masses , no retractions, no nipple discharge. ABDOMEN/GI: Abdomen soft, non-tender, bowel sounds present, no rebound, no guarding Gravid to [39-] weeks size Fundal Height: [38-] GENITOURINARY: External Genitalia: intact and normal in appearance BUS glands: [-] Cervix: [post-] Dilatation: [3-4-] Effacement: [70-] Station: [-3] Presentation: [vtx-] Membranes: [intact ] Uterine Contractions: [q3 min-] FHT's: Category: [1-] Baseline: [133-] Reactive: [R-] Variability: [mod-] Decels: [0-] EXTREMITIES: No cyanosis or edema. BACK: Nontender without obvious deformity. No CVA tenderness. NEUROLOGICAL: Awake and alert. Motor and sensory grossly within normal limits. Five out of 5 muscle strength in all muscle groups. Normal speech. Results - Labs Group B Strep: Negative Caprini VTE Risk Assessment Caprini VTE Risk Assessment: No/Low Risk (score <= 1) Caprini Risk Assessment Model: Point Value = 1 Point Value = 2 Point Value = 3 Point Value = 5 Age 41-60 Minor surgery BMI > 25 kg/m2 Swollen legs Varicose veins or History of unexplained or recurrent spontaneous Oral contraceptives or hormone replacement Sepsis (< 1 month) Serious lung disease, including pneumonia (< 1 month) Abnormal pulmonary function Acute myocardial infarction Congestive heart failure (< 1 month) History of inflammatory bowel disease Medical patient at bed rest Age 61-74 Arthroscopic surgery Major open surgery (> 45 min) Laparoscopic surgery (> 45 min) Malignancy Confined to bed (> 72 hours) Immobilizing plaster cast Central venous access Age >= 75 History of VTE Family history of VTE Factor V Leiden Prothrombin [id number] Lupus anticoagulant Anticardiolipin antibodies Elevated serum homocysteine Heparin-induced thrombocytopenia Other congenital or acquired thrombophilia Stroke (< 1 month) Elective arthroplasty Hip, pelvis, or leg fracture Acute spinal cord injury (< 1 month) Prophylaxis Regimen: Total Risk Factor Score Risk Level Prophylaxis Regimen 0-1 Low Early ambulation 2 Moderate Order ONE of the following: *Sequential Compression Device (SCD) *Heparin 5000 units SQ BID 3-4 Higher Order ONE of the following medications: *Heparin 5000 units SQ TID *Enoxaparin/Lovenox 40 mg SQ daily (WT < 150 kg, CrCl > 30 mL/min) *Enoxaparin/Lovenox 30 mg SQ daily (WT < 150 kg, CrCl > 10-29 mL/min) *Enoxaparin/Lovenox 30 mg SQ BID (WT < 150 kg, CrCl > 30 mL/min) AND/OR *Sequential Compression Device (SCD) 5 or more Highest Order ONE of the following medications: *Heparin 5000 units SQ TID (Preferred with Epidurals) *Enoxaparin/Lovenox 40 mg SQ daily (WT < 150 kg, CrCl > 30 mL/min) *Enoxaparin/Lovenox 30 mg SQ daily (WT < 150 kg, CrCl > 10-29 mL/min) *Enoxaparin/Lovenox 30 mg SQ BID (WT < 150 kg, CrCl > 30 mL/min) AND *Sequential Compression Device (SCD) Assessment and Plan - Diagnosis (1) 39 weeks gestation of Code(s): Z3A.39 - 39 weeks gestation of Status: Acute (2) Uterine contractions during Code(s): O62.2 - Other uterine inertia Status: Acute - Plan This multiparous patient is now 39 weeks and in early labor. Her cervix is 3-4 cm/70%/-2, NST is reactive contractions are regular. Plan to admit the patient to [facility], manage and augment labor as needed. Anticipate vaginal delivery
[2018-03-02 08:58] LABS: Bacteria,Urine Rare /hpf; Bilirubin,Urine Negative (Negative); Clarity,Urine Hazy (Clear); Color,Urine Yellow (Yellw/Straw); Glucose,Urine (UA) Negative (Negative); Leukocyte Esterase,Urine Negative (Negative); Nitrite,Urine Negative (Negative); Specific Gravity,Urine 1.013 (1.002-1.035); Squamous Epithelial Cell,Urine 7 /hpf (0-5)
[2018-03-02 09:02] LABS: Amphetamine Urine With Conf Neg (Neg); Benzodiazepine Urine With Conf Neg (Neg)
[2018-03-02 09:02] LABS: Baso % (Auto) 0.4 % (0.0-2.0); Eos # (Auto) 0.1 th/mm3 (0.0-0.4); Eos % (Auto) 1.1 % (0.0-4.0); Hematocrit 33.1 % (35.0-46.0); Hemoglobin 11.1 gm/dL (11.6-15.3); Lymph # (Auto) 2.5 th/mm3 (1.0-4.8); Lymph % (Auto) 25.3 % (9.0-44.0); Mean Corpuscular HGB Conc 33.3 % (32.0-36.0); Mean Corpuscular Hemoglobin 30.6 pg (27.0-34.0); Mean Corpuscular Volume 91.7 fL (80.0-100.0); Mean Platelet Volume 10.3 fL (7.0-11.0); Mono # (Auto) 0.9 th/mm3 (0.0-0.9); Mono % (Auto) 8.8 % (0.0-8.0); Neut # (Auto) 6.3 th/mm3 (1.8-7.7); Neut % (Auto) 64.4 % (16.0-70.0); Platelet Count 167 th/mm3 (150-450); Red Blood Count 3.62 mil/mm3 (4.00-5.30); Red Cell Distribution Width 13.3 % (11.6-17.2); White Blood Count 9.8 th/mm3 (4.0-11.0)
[2018-03-02] MEDS ORDERED: fentaNYL 2MCG-Bupiv 0.125% Epi 150 ML EPIDURAL ONE (09:24)
[2018-03-02] MEDS ORDERED: Lidocaine PF 1% Inj 5 ML Vial ONE (09:39)
[2018-03-02] MEDS ORDERED: Bupivacaine PF 0.25% Inj 10 ML Vial ONE (09:39)
[2018-03-02] MEDS ORDERED: Lidocaaine 1.5%/Epinephrine 1:200,000 PF Inj 5 ML Amp ONE ×2 (09:39→23:17)
[2018-03-02] MEDS ORDERED: fentaNYL Citrate Inj 100 MCG/2 ML Ampul EPIDURAL ONE (11:18)
--- NOTE | 2018-03-02 11:18 | P.OBLABOR ---
Subjective Interval history: Pt seen w. Resident - VE /-1. Membranes intact. FHR -R Plan re-evaluate in 1-2 hours if no change AROM + oxytocin Objective Vital Signs: Vital Signs - 8 hr 03/02/18 07:15 03/02/18 08:45 03/02/18 09:45 Temperature 97.9 F Pulse Rate 82 77 Respiratory Rate 20 18 18 Blood Pressure 128/77 118/73 03/02/18 09:50 03/02/18 09:56 03/02/18 10:00 Temperature Pulse Rate 73 76 Respiratory Rate 20 Blood Pressure 114/80 118/74 03/02/18 10:05 03/02/18 10:09 03/02/18 10:21 Temperature Pulse Rate 83 83 77 Respiratory Rate Blood Pressure 123/79 110/72 121/66 03/02/18 10:28 03/02/18 10:40 03/02/18 10:50 Temperature Pulse Rate 84 74 74 Respiratory Rate Blood Pressure 101/58 L 104/51 L 03/02/18 10:55 03/02/18 11:10 Temperature Pulse Rate 72 78 Respiratory Rate 18 Blood Pressure 87/45 L Objective: Pelvic Exam: Cervix: [-] Dilatation: [-] Effacement: [-] Station: [-] Presentation: [-] Membranes: [intact or ruptured] Uterine Contractions: [-] FHT's: Category: [-] Baseline: [-] Reactive: [-] Variability: [-] Decels: [-] Assessment and Plan - Diagnosis (1) 39 weeks gestation of Code(s): Z3A.39 - 39 weeks gestation of Status: Acute (2) Uterine contractions during Code(s): O62.2 - Other uterine inertia Status: Acute - Plan This multiparous patient is now 39 weeks and in early labor. Her cervix is 3-4 cm/70%/-2, NST is reactive contractions are regular. Plan to admit the patient to [facility], manage and augment labor as needed. Anticipate vaginal delivery
--- NOTE | 2018-03-02 12:52 | P.OBLABOR ---
Subjective Interval history: Patient is a 32 year old at 39 weeks admitted for active labor. AROM at 12:50. Performed by Dr. Smith. Patient resting comfortably; epidural in place. ABDOMEN/GI: Abdomen soft, non-tender, bowel sounds present, no rebound, no guarding Gravid to 39 weeks size GENITOURINARY: Dilatation: 4cm Effacement: 70% Station: -2 Membranes: ruptured Uterine Contractions: q2-4 FHT's: Category: 1 Baseline: 140 Reactive: + Variability: moderate Decels: none Continue routine L&D care. Patient to be checked in 2-3 hours. Pitocin to be started if no cervical change. Anticipate vaginal delivery Discussed with OB hospitalist. Objective Vital Signs: Vital Signs - 8 hr 03/02/18 07:15 03/02/18 08:45 03/02/18 09:45 Temperature 97.9 F Pulse Rate 82 77 Respiratory Rate 20 18 18 Blood Pressure 128/77 118/73 03/02/18 09:50 03/02/18 09:56 03/02/18 10:00 Temperature Pulse Rate 73 76 Respiratory Rate 20 Blood Pressure 114/80 118/74 03/02/18 10:05 03/02/18 10:09 03/02/18 10:21 Temperature Pulse Rate 83 83 77 Respiratory Rate Blood Pressure 123/79 110/72 121/66 03/02/18 10:28 03/02/18 10:40 03/02/18 10:50 Temperature Pulse Rate 84 74 74 Respiratory Rate Blood Pressure 101/58 L 104/51 L 03/02/18 10:55 03/02/18 11:10 03/02/18 11:25 Temperature Pulse Rate 72 78 71 Respiratory Rate 18 Blood Pressure 102/69 87/45 L 102/65 03/02/18 11:40 03/02/18 11:55 03/02/18 12:05 Temperature Pulse Rate 69 83 69 Respiratory Rate Blood Pressure 105/41 L 118/53 L 112/54 L
--- NOTE | 2018-03-02 12:55 | P.OBLABOR ---
Subjective Interval history: VE- 4/70/-2. AROM w. Amnitone - clear fluid noted. FHR Category 1-continue w. current plan . Objective Vital Signs: Vital Signs - 8 hr 03/02/18 07:15 03/02/18 08:45 03/02/18 09:45 Temperature 97.9 F Pulse Rate 82 77 Respiratory Rate 20 18 18 Blood Pressure 128/77 118/73 03/02/18 09:50 03/02/18 09:56 03/02/18 10:00 Temperature Pulse Rate 73 76 Respiratory Rate 20 Blood Pressure 114/80 118/74 03/02/18 10:05 03/02/18 10:09 03/02/18 10:21 Temperature Pulse Rate 83 83 77 Respiratory Rate Blood Pressure 123/79 110/72 121/66 03/02/18 10:28 03/02/18 10:40 03/02/18 10:50 Temperature Pulse Rate 84 74 74 Respiratory Rate Blood Pressure 101/58 L 104/51 L 03/02/18 10:55 03/02/18 11:10 03/02/18 11:25 Temperature Pulse Rate 72 78 71 Respiratory Rate 18 Blood Pressure 102/69 87/45 L 102/65 03/02/18 11:40 03/02/18 11:55 03/02/18 12:05 Temperature Pulse Rate 69 83 69 Respiratory Rate Blood Pressure 105/41 L 118/53 L 112/54 L Objective: Pelvic Exam: Cervix: [-] Dilatation: [-] Effacement: [-] Station: [-] Presentation: [-] Membranes: [intact or ruptured] Uterine Contractions: [-] FHT's: Category: [-] Baseline: [-] Reactive: [-] Variability: [-] Decels: [-] Assessment and Plan - Diagnosis (1) 39 weeks gestation of Code(s): Z3A.39 - 39 weeks gestation of Status: Acute (2) Uterine contractions during Code(s): O62.2 - Other uterine inertia Status: Acute - Plan This multiparous patient is now 39 weeks and in early labor. Her cervix is 3-4 cm/70%/-2, NST is reactive contractions are regular. Plan to admit the patient to OB rowe, manage and augment labor as needed. Anticipate vaginal delivery
[2018-03-02] MEDS: fentaNYL 2MCG-Bupiv 0.125% Epi 150 ML EPIDURAL PRN ×2 (13:18→21:44)
--- NOTE | 2018-03-02 15:11 | P.OBLABOR ---
Subjective Interval history: Patient examined at bedside, resting comfortably, had an epidural. Objective Vital Signs: Vital Signs - 8 hr 03/02/18 07:15 03/02/18 08:45 03/02/18 09:45 Temperature 97.9 F Pulse Rate 82 77 Respiratory Rate 20 18 18 Blood Pressure 128/77 118/73 03/02/18 09:50 03/02/18 09:56 03/02/18 10:00 Temperature Pulse Rate 73 76 Respiratory Rate 20 Blood Pressure 114/80 118/74 03/02/18 10:05 03/02/18 10:09 03/02/18 10:21 Temperature Pulse Rate 83 83 77 Respiratory Rate Blood Pressure 123/79 110/72 121/66 03/02/18 10:28 03/02/18 10:40 03/02/18 10:50 Temperature Pulse Rate 84 74 74 Respiratory Rate Blood Pressure 101/58 L 104/51 L 03/02/18 10:55 03/02/18 11:10 03/02/18 11:25 Temperature Pulse Rate 72 78 71 Respiratory Rate 18 Blood Pressure 102/69 87/45 L 102/65 03/02/18 11:40 03/02/18 11:55 03/02/18 12:05 Temperature Pulse Rate 69 83 69 Respiratory Rate Blood Pressure 105/41 L 118/53 L 112/54 L 03/02/18 12:25 03/02/18 13:00 03/02/18 13:31 Temperature 98.2 F Pulse Rate 72 71 73 Respiratory Rate 16 Blood Pressure 115/58 L 103/59 L 03/02/18 13:40 03/02/18 14:00 03/02/18 14:35 Temperature Pulse Rate 72 69 77 Respiratory Rate 16 Blood Pressure 101/59 L 93/57 L 99/59 L 03/02/18 14:45 Temperature Pulse Rate 70 Respiratory Rate Blood Pressure 89/57 L Objective: Pelvic Exam: Cervix: posterior Dilatation: 4 Effacement: 70 Station: -3 Presentation: cephalic Membranes: ruptured Uterine Contractions: occasional FHT's: Category: 2 Baseline: 130 bmp Reactive: yes Variability: moderate Decels: variable Assessment and Plan - Plan This multiparous patient is now 39 weeks and in early labor. Her cervix is 4 cm /70%/-3, has not changed since last cervical check. Cat 2 tracing, moderate reactivity. -EFM/[place]: Cat 2. Moderate reactivity. -Cercvical Check: /-3 -Start Pitocin 06-16-29 -Anticipate -Discussed with Dr. CASTELLANOS
[2018-03-02] MEDS ORDERED: Oxytocin 30 Units/500ml Premix 30 UNITS/500 ML BAG IV.SIG PRN (15:30)
--- NOTE | 2018-03-02 18:47 | P.OBLABOR ---
Subjective Interval history: IUPC in place. Patient has not complaints at this time. Objective Vital Signs: Vital Signs - 8 hr 03/02/18 10:50 03/02/18 10:55 03/02/18 11:10 Temperature Pulse Rate 74 72 78 Respiratory Rate 18 Blood Pressure 102/69 87/45 L 03/02/18 11:25 03/02/18 11:40 03/02/18 11:55 Temperature Pulse Rate 71 69 83 Respiratory Rate Blood Pressure 102/65 105/41 L 118/53 L 03/02/18 12:05 03/02/18 12:25 03/02/18 13:00 Temperature 98.2 F Pulse Rate 69 72 71 Respiratory Rate 16 Blood Pressure 112/54 L 115/58 L 03/02/18 13:31 03/02/18 13:40 03/02/18 14:00 Temperature Pulse Rate 73 72 69 Respiratory Rate 16 Blood Pressure 103/59 L 101/59 L 93/57 L 03/02/18 14:35 03/02/18 14:45 03/02/18 15:10 Temperature Pulse Rate 77 70 148 H Respiratory Rate 16 Blood Pressure 99/59 L 89/57 L 110/52 L 03/02/18 15:16 03/02/18 15:25 03/02/18 16:05 Temperature Pulse Rate 79 74 76 Respiratory Rate Blood Pressure 99/47 L 105/56 L 03/02/18 16:15 03/02/18 16:25 03/02/18 16:30 Temperature Pulse Rate 84 75 91 H Respiratory Rate 18 Blood Pressure 109/54 L 103/58 L 102/64 03/02/18 16:35 03/02/18 17:10 03/02/18 17:46 Temperature Pulse Rate 77 72 62 Respiratory Rate Blood Pressure 124/62 105/58 L 03/02/18 17:55 03/02/18 18:10 03/02/18 18:15 Temperature Pulse Rate 68 64 71 Respiratory Rate Blood Pressure 102/61 114/66 Objective: Pelvic Exam: Cervix: [] Dilatation: [3-4 cm] Effacement: [70 cm] Station: [-2] Presentation: [-] Membranes: [ruptured] Uterine Contractions: [q3-4 min] FHT's: Category: [1] Baseline: [135] Reactive: [yes] Variability: [mod] Decels: [none] Assessment and Plan - Plan This multiparous patient 39 weeks and in early labor. Her cervix is 4 cm/70%/- 2. IUPC was placed, epidural given. Cat 2 tracing, moderate reactivity. -EFM/[place]: Cat 2. Moderate reactivity. -Cervical Check: unchanged since last. Con't cervical checks [id number] - Pitocin 230 -Discussed with Dr. CASTELLANOS
--- NOTE | 2018-03-03 00:32 | P.OBLABOR ---
Subjective Interval history: Patient feeling pressure. Objective Vital Signs: Vital Signs - 8 hr 03/02/18 16:25 03/02/18 16:30 03/02/18 16:35 Temperature Pulse Rate 75 91 H 77 Respiratory Rate Blood Pressure 103/58 L 102/64 03/02/18 17:10 03/02/18 17:46 03/02/18 17:55 Temperature Pulse Rate 72 62 68 Respiratory Rate Blood Pressure 124/62 105/58 L 03/02/18 18:10 03/02/18 18:15 03/02/18 18:45 Temperature Pulse Rate 64 71 84 Respiratory Rate Blood Pressure 102/61 114/66 121/71 03/02/18 18:55 03/02/18 19:15 03/02/18 19:19 Temperature 97.8 F Pulse Rate 80 70 Respiratory Rate 18 Blood Pressure 107/63 03/02/18 19:25 03/02/18 19:31 03/02/18 19:40 Temperature Pulse Rate 81 68 71 Respiratory Rate Blood Pressure 105/56 L 113/54 L 03/02/18 20:00 03/02/18 20:01 03/02/18 20:10 Temperature Pulse Rate 78 78 83 Respiratory Rate 16 Blood Pressure 119/69 03/02/18 20:25 03/02/18 20:34 03/02/18 20:38 Temperature Pulse Rate 74 75 73 Respiratory Rate 18 Blood Pressure 124/60 03/02/18 20:40 03/02/18 21:00 03/02/18 21:07 Temperature Pulse Rate 78 80 88 Respiratory Rate 18 Blood Pressure 112/51 L 03/02/18 21:10 03/02/18 21:31 03/02/18 21:55 Temperature Pulse Rate 89 95 H 80 Respiratory Rate Blood Pressure 110/67 121/84 03/02/18 22:00 03/02/18 22:10 03/02/18 22:35 Temperature 98.4 F Pulse Rate 84 88 Respiratory Rate 20 Blood Pressure 96/66 L 03/02/18 22:38 03/02/18 22:43 03/02/18 23:00 Temperature Pulse Rate 85 78 Respiratory Rate 20 Blood Pressure 123/62 110/92 H 03/02/18 23:10 03/02/18 23:16 03/02/18 23:21 Temperature Pulse Rate 79 79 91 H Respiratory Rate 20 Blood Pressure 104/61 03/02/18 23:22 03/02/18 23:25 03/02/18 23:30 Temperature Pulse Rate 77 92 H 84 Respiratory Rate Blood Pressure 115/65 110/68 03/02/18 23:40 03/02/18 23:45 03/02/18 23:55 Temperature Pulse Rate 87 94 H 93 H Respiratory Rate Blood Pressure 120/93 H 03/03/18 00:00 03/03/18 00:05 03/03/18 00:15 Temperature 98.8 F Pulse Rate 103 H 99 H 103 H Respiratory Rate 20 Blood Pressure 03/03/18 00:20 Temperature Pulse Rate 90 Respiratory Rate Blood Pressure Objective: Pelvic Exam: Cervix: [midline] Dilatation: [9-10 cm] Effacement: [90%] Station: [0] Presentation: [vertex] Membranes: [ruptured] Uterine Contractions: [2-3 min] FHT's: Category: [1] Baseline: [150] Reactive: [yes] Variability: [mod] Decels: [early and intermittent variable] Assessment and Plan - Plan This multiparous patient @39/1. AROM, +epidural, GBS neg. Her cervix is 9- 10 cm/90%/0. FHT reassuring and contractions adequate, Cat 1. -On Pit -Continue expectant management, anticipate delivery soon
[2018-03-03] MEDS ORDERED: Bisacodyl 10 MG Supp RECTAL PRN (01:45)
[2018-03-03] MEDS ORDERED: Oxytocin 30 Units/500ml Premix 30 UNITS/500 ML BAG IV.CONT PRN (01:45)
[2018-03-03] MEDS ORDERED: Zolpidem Tartrate 5 MG Tablet PO PRN (01:45)
[2018-03-03] MEDS ORDERED: Naloxone Inj 0.4 MG/ML Vial IV.PUSH PRN (01:45)
[2018-03-03] MEDS ORDERED: Acetaminophen 325 MG Tablet PO PRN (01:45)
[2018-03-03] MEDS ORDERED: Benzocaine 20% Top Spray 60 ML Can TOPICAL PRN (01:45)
--- NOTE | 2018-03-03 01:47 | P.OBLABOR ---
Subjective Interval history: Attending note-in attendance of delivery supervised PGY 1. Of note patient noted to have prodromal labor. Cervix at 3 cm for most of the day however pelvis was noted to be adequate heart rate was noted to be a category 1 reactive reassuring therefore patient allowed to labor with augmentation. Towards the latter half of the labor or late second stage noted heart rate 180 good variability but decelerations noted at this time vertex was noted to be relatively plus to +3 station. Patient was counseled suspect will develop maternal fever at this time chorioamnionitis. Plan to treat with antibiotics postdelivery. However patient did deliver a viable infant male Apgars 9 9 without incident over relatively intact perineum other than a periurethral laceration which was hemostatic. Objective Vital Signs: Vital Signs - 8 hr 03/02/18 17:46 03/02/18 17:55 03/02/18 18:10 Temperature Pulse Rate 62 68 64 Respiratory Rate Blood Pressure 105/58 L 102/61 03/02/18 18:15 03/02/18 18:45 03/02/18 18:55 Temperature Pulse Rate 71 84 80 Respiratory Rate Blood Pressure 114/66 121/71 03/02/18 19:15 03/02/18 19:19 03/02/18 19:25 Temperature 97.8 F Pulse Rate 70 81 Respiratory Rate 18 Blood Pressure 107/63 03/02/18 19:31 03/02/18 19:40 03/02/18 20:00 Temperature Pulse Rate 68 71 78 Respiratory Rate 16 Blood Pressure 105/56 L 113/54 L 03/02/18 20:01 03/02/18 20:10 03/02/18 20:25 Temperature Pulse Rate 78 83 74 Respiratory Rate Blood Pressure 119/69 03/02/18 20:34 03/02/18 20:38 03/02/18 20:40 Temperature Pulse Rate 75 73 78 Respiratory Rate 18 Blood Pressure 124/60 03/02/18 21:00 03/02/18 21:07 03/02/18 21:10 Temperature Pulse Rate 80 88 89 Respiratory Rate 18 Blood Pressure 112/51 L 03/02/18 21:31 03/02/18 21:55 03/02/18 22:00 Temperature 98.4 F Pulse Rate 95 H 80 Respiratory Rate 20 Blood Pressure 110/67 121/84 03/02/18 22:10 03/02/18 22:35 03/02/18 22:38 Temperature Pulse Rate 84 88 85 Respiratory Rate Blood Pressure 96/66 L 123/62 03/02/18 22:43 03/02/18 23:00 03/02/18 23:10 Temperature Pulse Rate 78 79 Respiratory Rate 20 Blood Pressure 110/92 H 03/02/18 23:16 03/02/18 23:21 03/02/18 23:22 Temperature Pulse Rate 79 91 H 77 Respiratory Rate 20 Blood Pressure 104/61 115/65 03/02/18 23:25 03/02/18 23:30 03/02/18 23:40 Temperature Pulse Rate 92 H 84 87 Respiratory Rate Blood Pressure 110/68 03/02/18 23:45 03/02/18 23:55 03/03/18 00:00 Temperature 98.8 F Pulse Rate 94 H 93 H 103 H Respiratory Rate 20 Blood Pressure 120/93 H 03/03/18 00:05 03/03/18 00:15 03/03/18 00:20 Temperature Pulse Rate 99 H 103 H 90 Respiratory Rate Blood Pressure 03/03/18 00:25 03/03/18 00:30 03/03/18 00:35 Temperature Pulse Rate 90 86 83 Respiratory Rate Blood Pressure 94/40 L 123/102 H 03/03/18 00:51 03/03/18 00:55 03/03/18 01:23 Temperature 98.9 F Pulse Rate 117 H 103 H Respiratory Rate 20 Blood Pressure Objective: Pelvic Exam: Cervix: [-] Dilatation: [-] Effacement: [-] Station: [-] Presentation: [-] Membranes: [intact or ruptured] Uterine Contractions: [-] FHT's: Category: [-] Baseline: [-] Reactive: [-] Variability: [-] Decels: [-] Assessment and Plan - Plan This multiparous patient @39/1. AROM, +epidural, GBS neg. Her cervix is 9- 10 cm/90%/0. FHT reassuring and contractions adequate, Cat 1. -On Pit -Continue expectant management, anticipate delivery soon
--- NOTE | 2018-03-03 01:51 | P.OBDELI ---
Weeks Gestation: 39 Patient Started Active Labor: No Medical Induction of Labor: Yes Artificial Rupture of Membrane: Yes Anesthesia: Epidural Episiotomy: none Vaginal Delivery: Normal Presentation: Occiput anterior Nuchal Cord: None Delayed Cord Clamping (45 sec): Yes Placenta: Spontaneous delivery Laceration: 1 deg Estimated blood loss (mL): 150 : Male Male A Delivery Time: 13:28 Weight: 3565 kg score (1 min): 9 score (5 min): 9 Additional Information: Head delivered by maternal effort. Anterior shoulder delivered without complication. Placenta delivered without complication. 1 degree periurethral no laceration required due to natural hemostasis and no continued bleeding.
[2018-03-03] MEDS ORDERED: miSOPROStol 200 MCG Tablet PO SCH (02:00)
[2018-03-03] MEDS: Witch Hazel 50%/Glyderin 12.5% 40 Pad Jar RECTAL PRN ×2 (03:06→21:12)
[2018-03-03] MEDS ORDERED: Acetaminophen/Codeine 300/30 MG Tablet PO PRN ×2 (05:03→12:13)
[2018-03-03] MEDS ORDERED: ALBUTEROL SULFATE INHALATION PRN (05:04)
[2018-03-03] MEDS: Famotidine 20 MG Tablet PO SCH ×2 (08:35→21:12)
[2018-03-03] MEDS: Senna/Docusate Sodium 8.6/50 MG Tablet PO SCH ×2 (08:36→21:12)
[2018-03-03] MEDS ORDERED: RANITIDINE HCL 150 MG PO SCH (09:00)
[2018-03-03] MEDS ORDERED: PNV IRON FOLIC ACID OMEGA3 PO SCH (09:00)
--- NOTE | 2018-03-03 10:02 | P.PNADD ---
Addendum to Inpatient Note Additional information: S: Patient seen and examined this morning. Patient is a 32 year-old delivered at 39 weeks and 1 day. Patient is day 0 after . Patient 's pain is well-controlled. Patient reports eating and drinking without any nausea or vomiting. Patient reports minimal bleeding. Patient has passed gas but no bowel movements. Patient is walking without lower extremity pain or shortness of breath. Patient reports desire for contraception and is breast- feeding. O: Vital Signs: BP:110/65, RR:18,P:63, T:98.5 General: We well-appearing female, in no acute distress. CVS: RRR, no murmurs, no gallops. Respiratory: Clear to auscultation bilaterally, no wheezes rales or rhonchi appreciated. Abdomen: Soft, nondistended, bowel sounds present. Fundus: Firm minimally tender beneath the umbilicus. Extremities: Warm and well-perfused, no pain to palpation. A/P: Patient is a 32 year-old delivered at 39 weeks. Patient is day 0 after . -Continue routine care. -Motrin and Percocet when necessary for pain. -Encourage OOB -D/C cytotec -D/C Ab after being 24 hours afebrile. -Pelvic rest for 6 weeks will need follow-up appointment at that time. -Anticipate discharge in 2 days -Discussed with Dr. HOLLINS
[2018-03-03] MEDS: Acetaminophen/Codeine 300/30 MG Tablet PO PRN ×3 (12:48→21:12)
[2018-03-03] MEDS ORDERED: Measles/Mumps/Rubella Vaccine Inj 0.5 ML Vial SQ ONE (16:00)
[2018-03-03] MEDS ORDERED: Diphtheria/Tetanus/Pertussis Vaccine Inj 0.5 ML Syringe IM ONE (16:00)
--- NOTE | 2018-03-03 17:15 | P.PNADD ---
Addendum to Inpatient Note Additional information: S: Patient seen and examined at bedside. She had complained of right lower extremity swelling around the ankle. She stated that the swelling started this morning. She denies any calf pain or tenderness. She states that she has not been ambulating frequently due to her vaginal pain. She has never experienced the swelling in the past. She is worried that she might have a blood clot since her father has a history of DVTs. She denies ever having a history of DVTs. O: Vital Signs: T:98.5, P:63, RR:18, BP:110/65 General: Well-appearing female, laying comfortably in bed, in no acute distress Extremities: Warm and well perfused bilaterally. No discoloration of the lower extremities appreciated bilaterally. 2+ dorsalis pedis pulses bilaterally. Sensation intact bilaterally of the lower extremities. Patient is able to wiggle toes. Negative Homans sign B/l. No pitting edema appreciated in the lower extremity bilaterally. A/P: 32-year-old female day #0 from complains of right lower extremity swelling. -Negative Homans sign b/l. -Sensation and Motor function is intact b/l. -Patient instructed to ambulate, encourage out of bed. CY andersen ordered. Doppler ultrasound of right lower extremity ordered to rule out any presence of DVT. -Discussed with Dr. Elmore.
--- NOTE | 2018-03-03 18:08 | US ---
EXAM DATE: 03/03/2018 6:04 PM EDT AGE/SEX: 32 years / Female INDICATIONS: Right leg edema. CLINICAL DATA: This is the patient's initial encounter. Patient reports that signs and symptoms have been present for 1 day and indicates a pain score of 3/10. MEDICAL/SURGICAL HISTORY: . Right leg edema. None. COMPARISON: No prior exams available for comparison. TECHNIQUE: Venous ultrasound of both lower extremities was performed from the inguinal ligament to t he proximal calf. Real-time, color Doppler and spectral tracing, compression and augmentation techni ques were used. FINDINGS: Normal compression of the deep venous system from the inguinal region to the proximal calf . No echogenic clot is seen. Normal response of the venous system to augmentation and respiration. CONCLUSION: 1. The study is negative for lower extremity deep venous thrombosis. Electronically signed by: Vladimir Copeland MD 03/03/2018 6:06 PM EDT
[2018-03-03 20:17] VITALS: BP 100/65
[2018-03-04] MEDS: Acetaminophen/Codeine 300/30 MG Tablet PO PRN ×3 (01:16→12:34)
[2018-03-04 08:45] VITALS: PULSE 57; RESP 16; TEMP 98
--- NOTE | 2018-03-04 08:46 | P.PNOB ---
Subjective Post day: 1 Interval history: 32 y/o PPD #1 @ 39/1 wks examined in bed. Patient reports improved pain today with decreased bleeding since yesterday. She is passing gas but has not yet had a bowel movement. She is eating and drinking, has showered and is ambulating, and is bottle feeding now but plans to breastfeed going forward. Her R LE swelling has improved since yesterday with compression stockings--U/S was negative. She denies n/v, dizziness, CP, SOB, dysuria, calf pain. Her plan for contraception is to undergo tubal ligation in 6 weeks. She is interested in leaving this afternoon after baby's circumcision. Objective Vital Signs/I&O: Vital Signs 03/03/18 09:51 03/03/18 20:00 Temperature 98.1 F 97.9 F Pulse Rate 89 68 Respiratory Rate 20 18 Blood Pressure 112/72 100/65 Result Diagrams: 03/02/18 08:30 Objective Remarks: GENERAL: Well-nourished, well-developed 32 y/o female who appears her stated age. CARDIOVASCULAR: Regular rate and rhythm without murmurs, gallops, or rubs. RESPIRATORY: Breath sounds equal bilaterally. No accessory muscle use. No rales or rhonci. ABDOMEN/GI: Abdomen soft, non-tender. Fundus: Firm, mildly tender palpated below the umbilicus. GENITOURINARY: Light to moderate bleeding. EXTREMITIES: No cyanosis or edema, non-tender, without signs of DVT. Florez negative. Medications and IVs: Active Medications Acetaminophen (Tylenol) 650 mg PO Q4H PRN PRN Reason: PAIN SCALE 1 TO 2 Last Admin: 03/03/18 03:06 Dose: 650 mg Acetaminophen/Codeine Phosphate (Tylenol W/Cod #3) 1 tab PO Q4H PRN PRN Reason: Pain 4-6 Last Admin: 03/04/18 06:01 Dose: 1 tab Acetaminophen/Codeine Phosphate (Tylenol W/Cod #3) 2 tab PO Q4H PRN PRN Reason: Pain 7-10 Al Hydroxide/Mg Hydroxide (Milk Of Magnesia Liq) 30 ml PO Q12H PRN PRN Reason: Mild Constipation Albuterol (Ventolin Hfa Inh) 2 puff INH Q4H PRN PRN Reason: SHORTNESS OF BREATH Benzocaine (Americaine 20% Top [place]) 1 spray TOPICAL Q4H PRN PRN Reason: For Perineum Discomfort Bisacodyl (Dulcolax Supp) 10 mg RECTAL DAILY PRN PRN Reason: SEVERE CONSITIPATION Cephalexin Monohydrate (Keflex) 500 mg PO Q6HR [facility] Last Admin: 03/04/18 06:01 Dose: 500 mg Citric Acid/Sodium Citrate (Sodium Citrate/Citric Acid Liq) 30 ml PO RECORDS ANALYSIS MANAGER [facility] Stop: 03/06/18 07:29 Last Admin: 03/02/18 19:30 Dose: 30 ml Famotidine (Pepcid) 20 mg PO BID [facility] [place] Last Admin: 03/03/18 21:12 Dose: 20 mg Fentanyl Citrate (Fentanyl Inj) 50 mcg IV.PUSH Q1H PRN PRN Reason: Pain Scale 3 - 5 Fentanyl Citrate (Fentanyl Inj) 100 mcg IV.PUSH Q1H PRN PRN Reason: PAIN SCALE 6 TO 10 Lactated Ringer's (Lr 1000 Ml Inj) 1,000 mls @ 125 mls/hr IV.CONT .Q8H [facility] Last Admin: 03/03/18 19:02 Dose: Not Given Lactated Ringer's (Lr 1000 Ml Inj) 1,000 mls @ 3,000 mls/hr IV.SIG UNSCH PRN PRN Reason: compromise or epidural Sodium Chloride (Ns Inj) 500 mls @ 1,000 mls/hr IV.SIG UNSCH PRN PRN Reason: SEE LABEL COMMENTS Sodium Chloride (Ns Inj) 1,000 mls @ 100 mls/hr IV.CONT .Q10H PRN PRN Reason: SEE LABEL COMMENTS Fentanyl/Bupivacaine/Sodium Chlor (Fentanyl 2 Mcg-Bupiv 0.125% Epi) 150 mls @ 12 mls/hr EPIDURAL UNSCH PRN PRN Reason: for Labor Pain Last Admin: 03/02/18 21:44 Dose: 12 mls/hr Oxytocin (Pitocin 30 Units/Ns 500 Ml Premix) 30 units in 500 mls @ 1 mls/hr IV.SIG TITRATE PRN; Protocol PRN Reason: For induction of labor Last Admin: 03/02/18 15:19 Dose: 1 milliunit/min, 1 mls/hr Oxytocin (Pitocin 30 Units/Ns 500 Ml Premix) 30 units in 500 mls @ 100 mls/hr IV.CONT UNSCH PRN PRN Reason: Heavy bleeding Ibuprofen (Motrin) 800 mg PO Q8H PRN PRN Reason: For Cramping Last Admin: 03/04/18 06:00 Dose: 800 mg Lactulose (Lactulose Liq) 30 ml PO DAILY PRN PRN Reason: SEVERE CONSITIPATION Lidocaine HCl (Xylocaine 1% Inj) 0.1 ml I-DERMAL PRN PRN PRN Reason: For IV start Stop: 03/05/18 07:28 Mineral Oil (Muri-Lube Oil) 10 ml TOPICAL PRN PRN PRN Reason: PRN perineal massage Naloxone HCl (Narcan Inj) 0.1 mg IV.PUSH Q2M PRN PRN Reason: for opiate reversal Naloxone HCl (Narcan Inj) 0.1 mg IV.PUSH Q2M PRN PRN Reason: for opiate reversal Ondansetron HCl (Zofran Inj) 4 mg IV.PUSH Q6H PRN PRN Reason: NAUSEA OR VOMITING Ondansetron HCl (Zofran Odt) 4 mg PO Q6H PRN PRN Reason: NAUSEA OR VOMITING Pat Own Med: Pnv #30 -Iron-Folic Acid- Omega3 Tablet 0 each PO DAILY [facility] Senna/Docusate Sodium (Gina-Colace) 1 tab PO BID [facility] Last Admin: 03/03/18 21:12 Dose: 1 tab Sennosides (Senokot) 17.2 mg PO Q12H PRN PRN Reason: Moderate Constipation Sodium Chloride (Ns Flush) 2 ml IV.FLUSH BID [facility] Last Admin: 03/03/18 21:13 Dose: Not Given Sodium Chloride (Ns Flush) 2 ml IV.FLUSH PRN PRN PRN Reason: FLUSH AFTER USING IV ACCESS Witch Terri/Glycerin (Tucks Pads) 1 applicatio RECTAL QID PRN PRN Reason: HEMORRHOIDS Last Admin: 03/03/18 21:12 Dose: 1 applicatio Zolpidem Tartrate (Ambien) 5 mg PO HS PRN PRN Reason: SLEEP Assessment and Plan - Diagnosis (1) 39 weeks gestation of Code(s): Z3A.39 - 39 weeks gestation of Status: Acute Plan: -Continue to monitor for signs of increased bleeding -Encourage continued attempts at -Doppler U/S negative yesterday, edema improved with CY hose. -Continue to ambulate, encourage out of bed. -Resume normal diet and ensure adequate intake -Monitor for signs of febrility, n/v, chills -Plans to undergo tubal ligation with outpatient provider in 6wks -Motrin and Percocet for pain PRN -F/u with OB provider in 6wks -Possible d/c this afternoon, if not tomorrow -Discussed with Dr. Elmore (2) Abdominal cramping affecting Code(s): O26.899 - Other specified related conditions, unspecified trimester; R10.9 - Unspecified abdominal pain Status: Acute Plan: -Acetaminophen 650-1000mg q6hr PRN pain - Plan This PPD#1 @39/1 with AROM, +epidural, GBS neg is doing well and without complaints. She is stable, her pain is improving, and had an U/S that was negative for DVT yesterday. She can be discharged today following circumcision of baby with follow up by her outpatient OB provider for monitoring and subsequent tubal ligation procedure.
[2018-03-04] MEDS: Senna/Docusate Sodium 8.6/50 MG Tablet PO SCH (09:29)
[2018-03-04] MEDS: Famotidine 20 MG Tablet PO SCH (09:29)
--- NOTE | 2018-03-04 11:51 | P.PNOB ---
Subjective Post day: 1 Interval history: Patient is a 32-year-old delivered at 39 weeks and 1 day. Patient is day 1 after NVD. Patient's pain is well-controlled. Patient reports minimal bleeding. Patient reports eating and drinking without any nausea or vomiting. Patient has passed gas but has not had a bowel movement. Patient denies chest pain and shortness of breath. Patient has been ambulating; she denies lower extremity pain. Patient reports desire for contraception, which she will discuss with her PCP at her first follow-up visit. Patient has decided to bottle and breast-feed. Objective Vital Signs/I&O: Vital Signs 03/03/18 20:00 03/04/18 08:00 Temperature 97.9 F 98.0 F Pulse Rate 68 57 L Respiratory Rate 18 16 Blood Pressure 100/65 100/65 Result Diagrams: 03/02/18 08:30 Objective Remarks: GENERAL: Well-nourished, well-developed patient. CARDIOVASCULAR: Regular rate and rhythm without murmurs, gallops, or rubs. RESPIRATORY: Breath sounds equal bilaterally. No accessory muscle use. ABDOMEN/GI: Abdomen soft, non-tender. Fundus: Firm, minimally tender at umbilicus. GENITOURINARY: Light to moderate bleeding. EXTREMITIES: No cyanosis or edema, non-tender, without signs of DVT. Medications and IVs: Active Medications Acetaminophen (Tylenol) 650 mg PO Q4H PRN PRN Reason: PAIN SCALE 1 TO 2 Last Admin: 03/03/18 03:06 Dose: 650 mg Acetaminophen/Codeine Phosphate (Tylenol W/Cod #3) 1 tab PO Q4H PRN PRN Reason: Pain 4-6 Last Admin: 03/04/18 06:01 Dose: 1 tab Acetaminophen/Codeine Phosphate (Tylenol W/Cod #3) 2 tab PO Q4H PRN PRN Reason: Pain 7-10 Al Hydroxide/Mg Hydroxide (Milk Of Magnesia Liq) 30 ml PO Q12H PRN PRN Reason: Mild Constipation Albuterol (Ventolin Hfa Inh) 2 puff INH Q4H PRN PRN Reason: SHORTNESS OF BREATH Benzocaine (Americaine 20% Top Graham) 1 spray TOPICAL Q4H PRN PRN Reason: For Perineum Discomfort Bisacodyl (Dulcolax Supp) 10 mg RECTAL DAILY PRN PRN Reason: SEVERE CONSITIPATION Cephalexin Monohydrate (Keflex) 500 mg PO Q6HR [facility] Last Admin: 03/04/18 06:01 Dose: 500 mg Citric Acid/Sodium Citrate (Sodium Citrate/Citric Acid Liq) 30 ml PO [employer]N [facility] Stop: 03/06/18 07:29 Last Admin: 03/02/18 19:30 Dose: 30 ml Famotidine (Pepcid) 20 mg PO BID [facility] Last Admin: 03/03/18 21:12 Dose: 20 mg Fentanyl Citrate (Fentanyl Inj) 50 mcg IV.PUSH Q1H PRN PRN Reason: Pain Scale 3 - 5 Fentanyl Citrate (Fentanyl Inj) 100 mcg IV.PUSH Q1H PRN PRN Reason: PAIN SCALE 6 TO 10 Lactated Ringer's (Lr 1000 Ml Inj) 1,000 mls @ 125 mls/hr IV.CONT .Q8H [facility] Last Admin: 03/04/18 10:55 Dose: Not Given Lactated Ringer's (Lr 1000 Ml Inj) 1,000 mls @ 3,000 mls/hr IV.SIG UNSCH PRN PRN Reason: compromise or epidural Sodium Chloride (Ns Inj) 500 mls @ 1,000 mls/hr IV.SIG UNSCH PRN PRN Reason: SEE LABEL COMMENTS Sodium Chloride (Ns Inj) 1,000 mls @ 100 mls/hr IV.CONT .Q10H PRN PRN Reason: SEE LABEL COMMENTS Fentanyl/Bupivacaine/Sodium Chlor (Fentanyl 2 Mcg-Bupiv 0.125% Epi) 150 mls @ 12 mls/hr EPIDURAL UNSCH PRN PRN Reason: for Labor Pain Last Admin: 03/02/18 21:44 Dose: 12 mls/hr Oxytocin (Pitocin 30 Units/Ns 500 Ml Premix) 30 units in 500 mls @ 1 mls/hr IV.SIG TITRATE PRN; Protocol PRN Reason: For induction of labor Last Admin: 03/02/18 15:19 Dose: 1 milliunit/min, 1 mls/hr Oxytocin (Pitocin 30 Units/Ns 500 Ml Premix) 30 units in 500 mls @ 100 mls/hr IV.CONT UNSCH PRN PRN Reason: Heavy bleeding Ibuprofen (Motrin) 800 mg PO Q8H PRN PRN Reason: For Cramping Last Admin: 03/04/18 06:00 Dose: 800 mg Lactulose (Lactulose Liq) 30 ml PO DAILY PRN PRN Reason: SEVERE CONSITIPATION Lidocaine HCl (Xylocaine 1% Inj) 0.1 ml I-DERMAL PRN PRN PRN Reason: For IV start Stop: 03/05/18 07:28 Mineral Oil (Muri-Lube Oil) 10 ml TOPICAL PRN PRN PRN Reason: PRN perineal massage Naloxone HCl (Narcan Inj) 0.1 mg IV.PUSH Q2M PRN PRN Reason: for opiate reversal Naloxone HCl (Narcan Inj) 0.1 mg IV.PUSH Q2M PRN PRN Reason: for opiate reversal Ondansetron HCl (Zofran Inj) 4 mg IV.PUSH Q6H PRN PRN Reason: NAUSEA OR VOMITING Ondansetron HCl (Zofran Odt) 4 mg PO Q6H PRN PRN Reason: NAUSEA OR VOMITING Pat Own Med: Pnv #30 -Iron-Folic Acid- Omega3 Tablet 0 each PO DAILY [facility] Senna/Docusate Sodium (Gina-Colace) 1 tab PO BID [facility] Last Admin: 03/03/18 21:12 Dose: 1 tab Sennosides (Senokot) 17.2 mg PO Q12H PRN PRN Reason: Moderate Constipation Sodium Chloride (Ns Flush) 2 ml IV.FLUSH BID [facility] Last Admin: 03/04/18 10:56 Dose: Not Given Sodium Chloride (Ns Flush) 2 ml IV.FLUSH PRN PRN PRN Reason: FLUSH AFTER USING IV ACCESS Witch Terri/Glycerin (Tucks Pads) 1 applicatio RECTAL QID PRN PRN Reason: HEMORRHOIDS Last Admin: 03/03/18 21:12 Dose: 1 applicatio Zolpidem Tartrate (Ambien) 5 mg PO HS PRN PRN Reason: SLEEP Assessment and Plan - Plan Patient is a 32-year-old delivered at 39 weeks and 1 day. Patient is day 1 after NVD. Continue routine care. Motrin and Tylenol when necessary for pain. Encourage OOB. Pelvic rest for 6 weeks will need follow-up appointment at that time. Contraception: Patient will discuss with OB provider. Anticipate discharge today. [facility] hospitalist
== END 2018-03-04 15:13 | disposition home or self-care (01) ==
LOC: HOBED 07:12 → H2E 07:30 → H1EA 03-03 02:33
PROVIDERS: ADMIT Obstetrics & Gynecology Maternal & Fetal Medicine; ATTEND Obstetrics & Gynecology Maternal & Fetal Medicine